=== PATIENT | male | born 1965 | race African-American/Black ===

== ENCOUNTER 2017-06-13 09:46 | Emergency (ER) | payer OTHER ==
[~2017-06-13] VITALS: Ht 190.5 cm; Wt 93.0 kg
[2017-06-13] MEDS ORDERED: NORCO 5-325 TA1 EACH PO (10:19)
== END 2017-06-13 13:12 | disposition home or self-care (01) ==
LOC: ER 09:46
DX: S16.1XXA Strain of muscle, fascia and tendon at neck level, initial encounter (principal); V53.5XXA Driver of pick-up truck or van injured in collision with car, pick-up truck or van in traffic accident, initial encounter; Y93.89 Activity, other specified; Y92.89 Other specified places as the place of occurrence of the external cause; Y99.8 Other external cause status; S06.0X9A Concussion with loss of consciousness of unspecified duration, initial encounter; Z88.8 Allergy status to other drugs, medicaments and biological substances